=== PATIENT | male | born 1985 | race Caucasian/White ===

== ENCOUNTER → 2023-07-18 17:49 | Outpatient (BNV) | payer MEDICAID, SELFPAY | PROVIDERS: Emergency Provider Emergency Medicine; Visit Provider Physician Assistant | DX: S72.141A Displaced intertrochanteric fracture of right femur, initial encounter for closed fracture (principal) | CPT/HCPCS: 27245; 99024; 99223; 99238; 99499; G0180 ==

== ENCOUNTER 2023-07-18 17:56 | Inpatient (IN) | payer MEDICAID, SELFPAY ==
--- NOTE | ~2023-07-18 | XR_ITS ---
EXAMINATION: XR FEMUR, RIGHT XR HIP, RIGHT CLINICAL INFORMATION: Fall pain COMPARISON: None available. TECHNIQUE: Single view the pelvis 2 views of the right hip 3 views of the right femur FINDINGS: Comminuted right femoral intertrochanteric fracture with varus angulation. Joint space alignment otherwise maintained. Soft tissues are unremarkable. XR/XR femur RT 2V IMPRESSION: Comminuted right femoral intertrochanteric fracture with varus angulation.
--- NOTE | ~2023-07-18 | XR_ITS ---
EXAMINATION: XR CHEST CLINICAL INFORMATION: Fall. Hip fracture. COMPARISON: None available. TECHNIQUE: Frontal view of the chest was obtained. FINDINGS: The heart is normal in size. The lungs are clear. No pneumothorax or pleural effusion. No acute osseous abnormality. XR/XR chest 1V IMPRESSION: No acute cardiopulmonary disease.
--- NOTE | ~2023-07-18 | FL_ITS ---
EXAMINATION: XR FLUOROSCOPY WITH IMAGES CLINICAL INFORMATION: Right hip fracture. COMPARISON: Right hip radiographs 07/18/2023. TECHNIQUE: Fluoroscopy Supervised By: Dr. Jackson Chavira. Fluoroscopy Time: 0.6 min. Cumulative Dose: 17.8 mGy. DAP: 0.310 Gycm2. Images: 3. FINDINGS: Intraoperative imaging shows placement of an intramedullary chema and screw in the right hip. The lesser trochanter is avulsed and displaced medially. FL/FL guidance in OR IMPRESSION: Fluoroscopy and spot films provided during ORIF right hip fracture.
--- NOTE | ~2023-07-18 | XR_ITS ---
EXAMINATION: XR FEMUR, RIGHT XR HIP, RIGHT CLINICAL INFORMATION: Fall pain COMPARISON: None available. TECHNIQUE: Single view the pelvis 2 views of the right hip 3 views of the right femur FINDINGS: Comminuted right femoral intertrochanteric fracture with varus angulation. Joint space alignment otherwise maintained. Soft tissues are unremarkable. XR/XR hip RT w PEL1V IMPRESSION: Comminuted right femoral intertrochanteric fracture with varus angulation.
[2023-07-18 18:07] VITALS: BP 114/88; BP 124/82; PULSE 58; PULSE 71; RESP 20; TEMP 36.4; O2SAT 100; O2SAT 97; BMI 19.2
--- NOTE | 2023-07-18 18:13 | ED.LOWEXIN ---
HPI - Extremity Injury (Lower) General Chief Complaint: Fall Stated Complaint: FELL WHILE ROLLERBLADING, 10/28 R HIP PAIN Time Seen by Provider: 07/18/23 18:20 Source: patient and EMS Mode of arrival: EMS Limitations: no limitations History of Present Illness HPI Narrative: Patient is a 37-year-old male who presents emergency department via EMS for evaluation. He reports that he was rollerblading today, when he accidentally went over a patch of rash resulting in a fall. He reports that he flew into the air with his legs forward subsequently landing onto his right side with the point of most impact to the hip and femur on the right. He reports significant pain on the right side. His leg is currently being held in the point of most comfort which is externally rotated with the knee at slight flexion. He denies any numbness or tingling. No radiation of pain into the groin/scrotum. However he reports severe pain with any movement to the right leg. He received Tylenol from EMS without much improvement to pain. At this time he declines interest in pain medication. He denies any head strike or loss of consciousness with this fall. Denies any chest abdominal or upper extremity pain. Related Data Home Medications ?Medication ?Instructions ?Recorded ?Confirmed ibuprofen 200 mg tablet 400 mg PO DAILY PRN Pain 07/18/23 07/18/23 multivitamin 1 tab PO DAILY 07/18/23 07/18/23 Allergies Allergy/AdvReac Type Severity Reaction Status Date / Time No Known Allergies Allergy Verified 07/18/23 18:21 Review of Systems Review of Systems: Yes all other systems are reviewed and are negative PMFSH Past Medical History Attestation statement: The following information was validated with the patient. Source: old records reviewed Social History Social History Patient Tobacco Use Status: Never used Tobacco Smoked in Last 30 Days: No Use of substances other than those prescribed or required for medical reasons: No Advance Directives: No Advance Directives Information Provided: Yes Nutrition Risks: No Nutritional Risk Physical Exam Vital Signs: Vital Signs: Last Vital Signs Temp 98.5 F 07/19/23 00:00 Pulse 69 07/19/23 00:00 Resp 12 07/19/23 00:00 BP 91/61 07/19/23 00:00 Pulse Ox 97 07/19/23 00:00 O2 Del Method Room Air 07/18/23 20:00 BMI result Body Mass Index 19.2 Appearance: Alert.?Oriented to person, place and time. No acute distress.?Normal affect. Eyes: Pupils equal, round and reactive to light.? ENT: Pharynx normal.?? Neck: Normal inspection.? Neck supple.?? CVS: Heart sounds normal. Normal heart rate and rhythm.? Pulses normal.?? Respiratory: No respiratory distress.? Lung sounds clear to auscultation bilaterally?? Abdomen: Soft and non-tender. Normoactive bowel sounds. Skin: Skin warm and dry.? Normal skin color.? Extremities: No lower extremity edema.? No calf ttp. 2+ DP/PT pulse bilaterally. Tenderness upon palpation to right lateral hip and proximal femur. Right lower extremity with external rotation and slight flexion of the knee Neuro: Moves all extremities spontaneously. Sensation intact bilaterally. CN II-XII intact. No focal neuro deficits. Ambulates with normal steady gait. Course Reevaluation(s) Reevaluation #1: Critical potassium 2.9, will obtain EKG to evaluate for acute changes with hypokalemia, potassium chloride total of 40 mEq use IV ordered in 10 mEq increments in addition to 40 mEq of oral potassium. Time: 21:22 Reevaluation #2: Rate: 64 Rhythm:? Normal sinus rhythm with arrhythmia Normal P waves.? Normal JOSEPHINE.?? Normal QRS complex.?? ST T wave :??No ST elevation, no ST depression, no T-wave inversions qTC: 410 prior studies:? No prior available for review The study has been interpreted contemporaneously by me. Medications Administered Generic Name Dose Route Start Last Admin Trade Name Julianq PRN Reason Stop Dose Admin Acetaminophen 650 mg 07/18/23 19:26 07/19/23 01:51 Acetaminophen 325 Mg Tablet PO 650 mg Q6H PRN Administration Pain, Mild (Pain Scale 1-3) Celecoxib 200 mg 07/18/23 21:00 07/18/23 21:24 Celecoxib 200 Mg Capsule PO Not Given BID ANGIE Docusate Sodium 100 mg 07/18/23 21:00 07/18/23 21:23 Docusate Sodium 100 Mg Capsule PO 100 mg BID ANGIE Administration Lactated Ringer's 1,000 mls @ 100 mls/hr 07/18/23 19:30 07/18/23 21:44 Lr IVCONT 100 mls/hr .Q10H ANGIE Administration Oxycodone HCl 10 mg 07/18/23 21:00 07/18/23 21:24 Oxycodone Hcl Er 10 Mg Tab.Er.12h PO Not Given BID ANGIE Sodium Chloride 3 ml 07/19/23 00:00 07/19/23 01:19 0.9 % Sodium Chloride Flush 3 Ml Syringe IVFLUSH Not Given QSHIFT ANGIE Discontinued Medications Generic Name Dose Route Start Last Admin Trade Name Freq PRN Reason Stop Dose Admin Potassium Chloride 10 meq in 100 mls @ 100 mls/hr 07/18/23 22:00 07/19/23 02:05 Potassium Chloride/H20 IV 07/19/23 01:59 100 mls/hr Q1H ANGIE Administration Morphine Sulfate 2 mg 07/18/23 19:03 07/18/23 21:23 Morphine Sulfate 2 Mg/Ml Cartridge IVPUSH 07/18/23 19:04 2 mg ONCE ONE Administration Protocol Ondansetron HCl 4 mg 07/18/23 19:03 07/18/23 21:23 Ondansetron Hcl 4 Mg/2 Ml Vial IVPUSH 07/18/23 19:04 4 mg ONCE ONE Administration Potassium Chloride 40 meq 07/18/23 21:20 07/18/23 22:31 Potassium Chloride Packet 20 Meq Packet PO 07/18/23 21:21 40 meq ONCE ONE Administration Medical Decision Making Medical Decision Making [facility] Narrative: Patient is a 37-year-old male who presents emergency department for evaluation of traumatic right hip/femur pain as per HPI. The extremity is neurovascularly intact distally at the time of evaluation, he has significant pain and tenderness along the proximal femur/lateral hip. XR was obtained to evaluate for fracture/dislocation versus pain secondary to contusion, XR reveals comminuted right femoral intertrochanteric fracture with varus angulation. He reports remote past medical history of prescription opiate abuse for which he stopped on his own many years ago, he does have reservations about taking any narcotic medications, but is amenable to short course low dosage if absolutely necessary. Differential Diagnosis Differential Diagnoses: The differential diagnosis associated with the presentation includes (See narrative above) Admission/Observation Consideration of admission/observation: Escalation of care including admission/observation considered Consult Healthcare Provider Management of the patient was discussed with: Public Health Teacher (See course narrative) Lab Data [facility] Lab Attestation statement: I reviewed the patient's lab results. Leukocytosis likely reactive in setting of fracture, not anemic, no thrombocytopenia. Initial hypokalemia as per course narrative, improved with repletion repeat 4.1. No JINNY. LFTs within normal range. 07/18/23 20:39 07/19/23 01:06 Independent Interpretation I performed an independent interpretation of an: Plain X-Ray (Right intertrochanteric fracture) Radiology Impression Discussion of test interpretation with radiology: I have reviewed the radiologist's reading. Radiologist Impression: XR/XR chest 1V IMPRESSION: No acute cardiopulmonary disease. XR/XR hip RT w PEL1V IMPRESSION: Comminuted right femoral intertrochanteric fracture with varus angulation. Independent Historian Clinical information obtained from an independent historian. History obtained from or confirmed by: EMS Critical Care Time Critical Care Time Critical Care Time: Yes Total Critical Care Time: 35 Attestation: I personally attest to this critical care time spent taking care of the patient exclusive of all other billable procedures was approximately 35 minutes including initial evaluation of patient, ordering tests, x-ray interpretation, EKG interpretation, hyperkalemia, IV potassium, medical consultation, documentation, re-evaluation. Discharge Plan Discharge Clinical Impression: Closed intertrochanteric fracture of right hip Patient Disposition: Admitted As Inpatient
--- NOTE | 2023-07-18 19:29 | PM.EVENT ---
Event Note Date of Service: 07/18/23 Event Note: right hip fx right hip IMN pending 07/19/23 NPO after mignight full h.p to follow Time Spent With Patient Time: Total time managing care of this patient today ____ minutes.
--- NOTE | 2023-07-18 19:48 | PM.EVENT ---
Event Note Date of Service: 07/18/23 Event Note: 37-year-old male with very remote history of prescription opiate abuse not on any home medications admitted to Orthopedic surgery with consult placed hospitalist service for preop evaluation. The patient reports that while rollerblading today, he went over a patch of rocks resulting in a fall landing on the right side with most of the impact to the right hip and femur and is complaining of pain on that side. XR shows R femoral neck fracture. Pt has a score of 0 of revised cardiac risk index, class I risk. Given urgent/emergent nature of surgery, recommend continuing as planned. Plan per orthopedic surgery Thank you for allowing me to participate in this consult. Signing off at this time. Please do not hesitate to call for further questions or for any acute medical issues Time Spent With Patient Time: Total time managing care of this patient today ____ minutes.
[2023-07-18 20:00] VITALS: BP 98/70; PULSE 62; RESP 16; TEMP 36.6; O2SAT 100
[2023-07-18 20:44] LABS: MANUAL DIFF FLAG NO
[2023-07-18 20:45] LABS: Basophils Absolute Auto 0.1 X10*3/uL (0.0-0.2); Basophils Percent Auto 0.4 % (0-2); Hematocrit 40.1 % (42.0-52.0); Hemoglobin 14.5 g/dl (14.0-18.0); Imm Gran Pct Auto 0.5 % (0.0-0.4); Lymphocytes Absolute Auto 0.9 X10*3/uL (1.2-4.9); Lymphocytes Percent Auto 4.6 % (20-40); Mean Corpuscular HGB Conc 36.2 g/dl (31.0-36.0); Mean Corpuscular Hemoglobin 31.1 pg (27.0-33.0); Mean Corpuscular Volume 86.1 fL (80.0-98.0); Mean Platelet Volume 9.9 fL (9.4-12.4); Monocytes Absolute Auto 1.3 X10*3/uL (0.1-1.2); Monocytes Percent Auto 6.7 % (2-11); Neutrophils Absolute Auto 17.2 x10*3/uL (2.0-8.3); Neutrophils Percent Auto 87.8 % (45-73); Platelet Count 253 X10*3/uL (160-400); Red Blood Count 4.66 X10*6/uL (4.60-5.80); Red Cell Distribution Width 11.9 % (11.0-16.0); White Blood Count 19.6 X10*3/uL (4.8-10.8)
--- NOTE | 2023-07-18 20:59 | PHA.MEDREC ---
Pharmacy Consult ? Medication Reconciliation Pharmacy has completed the medication reconciliation. Confirmed medications with patient.
[2023-07-18 21:19] LABS: Alanine Aminotransferase 12 U/L (0-40); Albumin Level 4.4 g/dL (3.5-5.0); Alkaline Phosphatase 84 U/L (39-117); Anion Gap 18 (12-20); Aspartate Amino Transferase 17 U/L (5-37); Bilirubin Total 0.9 mg/dL (0.0-1.0); Blood Urea Nitrogen 14 mg/dL (9-16); Calcium 9.4 mg/dL (8.4-10.2); Carbon Dioxide 20 mmol/L (22-29); Chloride 107 mmol/L (96-108); Creatinine Clr Calc Pharmacy 103.8; Estimated Glomerular Filt Rate > 60; Glucose Random 111 mg/dL (60-115); Potassium 2.9 mmol/L (3.3-5.1); Sodium 142 mmol/L (135-145); Total Protein 7.3 g/dL (6.5-8.0)
--- NOTE | 2023-07-18 21:20 | ECG_ITS ---
Test Reason : HYPO K Blood Pressure : / mmHG Vent. Rate : 064 BPM Atrial Rate : 064 BPM P-R Int : 150 ms QRS Dur : 100 ms QT Int : 398 ms P-R-T Axes : 061 -15 064 degrees QTc Int : 410 ms Normal sinus rhythm with sinus arrhythmia Normal ECG No previous ECGs available Referred By: Clover Kumar Electronically Signed By:CELESTE ECHAVARRIA
[2023-07-18 21:23] VITALS: RESP 20
[2023-07-18] MEDS: Docusate Sodium 100 MG CAPSULE PO (21:23)
[2023-07-18] MEDS: ondansetron HCL 4 MG/2 ML VIAL IVPUSH (21:23)
[2023-07-18] MEDS: Morphine Sulfate 2 MG/ML CARTRIDGE IVPUSH (21:23)
[2023-07-18] MEDS: Lactated Ringers 1,000 ML 100 ML IVCONT (21:44)
[2023-07-18 21:51] LABS: Magnesium 1.8 mg/dL (1.6-2.6)
[2023-07-18] MEDS: Potassium Chloride Packet 20 MEQ PACKET 40 MEQ PO (22:31)
[2023-07-18] MEDS: Potassium Chloride/H20 10 MEQ/100 ML PIGGYBACK 100 MEQ IV (22:31)
[2023-07-19] VITALS (12 sets, daily range): BP systolic 91–154; BP diastolic 59–86; PULSE 57–109; RESP 12–18; TEMP 36.4–38.4; O2SAT 96–100; BMI 19.2
[2023-07-19] MEDS: Potassium Chloride/H20 10 MEQ/100 ML PIGGYBACK 100 MEQ IV ×3 (00:40→04:15)
[2023-07-19 01:34] LABS: Potassium 4.1 mmol/L (3.3-5.1)
[2023-07-19] MEDS: Acetaminophen 325 MG TABLET 650 MG PO ×2 (01:51→08:21)
--- NOTE | 2023-07-19 02:09 | PC.NURSE ---
this rn assumed care of pt, pt a&ox4, respirations even and unlabored. pt reporting 5/10 right hip pain, pt requesting tylenol at this time, pt medicated per apr, tolerated well with water.
[2023-07-19] MEDS: oxyCODONE HCl Immed Release 5 MG TABLET PO ×2 (04:16→16:41)
[2023-07-19] MEDS: Lactated Ringers 1,000 ML 100 ML IVCONT ×2 (05:41→18:11)
[2023-07-19 05:52] LABS: Basophils Percent Auto 0.2 % (0-2); Eosinophils Percent Auto 0.1 % (0-4); Hematocrit 36.1 % (42.0-52.0); Imm Gran Abs Auto 0.07 X10*3/uL (0.00-0.03); Imm Gran Pct Auto 0.4 % (0.0-0.4); Lymphocytes Absolute Auto 1.8 X10*3/uL (1.2-4.9); Lymphocytes Percent Auto 10.9 % (20-40); MANUAL DIFF FLAG SCAN; Mean Corpuscular Hemoglobin 31.1 pg (27.0-33.0); Mean Corpuscular Volume 86.4 fL (80.0-98.0); Mean Platelet Volume 10.3 fL (9.4-12.4); Monocytes Absolute Auto 1.7 X10*3/uL (0.1-1.2); Monocytes Percent Auto 10.1 % (2-11); Neutrophils Absolute Auto 12.9 x10*3/uL (2.0-8.3); Neutrophils Percent Auto 78.3 % (45-73); Platelet Count 227 X10*3/uL (160-400); Red Blood Count 4.18 X10*6/uL (4.60-5.80); Red Cell Distribution Width 11.9 % (11.0-16.0); SCAN SMEAR FLAG 1; White Blood Count 16.5 X10*3/uL (4.8-10.8)
[2023-07-19 06:12] LABS: SLIDE REVIEW VERIFIED
[2023-07-19 06:18] LABS: Anion Gap 13 (12-20); Blood Urea Nitrogen 12 mg/dL (9-16); Calcium 9.4 mg/dL (8.4-10.2); Carbon Dioxide 19 mmol/L (22-29); Chloride 111 mmol/L (96-108); Creatinine Clr Calc Pharmacy 109.1; Estimated Glomerular Filt Rate > 60; Glucose Fasting 99 mg/dL (60-99); Potassium 4.3 mmol/L (3.3-5.1); Sodium 139 mmol/L (135-145)
[2023-07-19] MEDS: oxyCODONE HCl ER 10 MG TAB.ER.12H PO ×2 (08:20→20:08)
[2023-07-19] MEDS: Docusate Sodium 100 MG CAPSULE PO ×2 (08:21→20:08)
--- NOTE | 2023-07-19 08:23 | P.HPOP_ITS ---
History of Present Illness History of Present Illness Date of Service: 07/19/23 Chief complaint: Right hip fx Narrative: Tru Ennis is a 37 year old male who presented to the ED after sustaining a fall from a rollerblading accident yesterday. He states he hit a rock and tried to catch himself, but ended up airborne and coming down hard landing on the right side. He was unable to get up and ambulate. A bystander called for EMS and he was transported to the ED. Xrays in the ED showed displaced Intertrochanteric fracture of the right femur. He is ambulatory at baseline. Works as a micro computer data processor. He was admitted to the orthopedic service fo surgical planning. Review of Systems 2 Review of Systems: Yes all other systems are reviewed and are negative PMFSH Social History Social History Patient Tobacco Use Status: Never used Tobacco Smoked in Last 30 Days: No Use of substances other than those prescribed or required for medical reasons: No Advance Directives: No Advance Directives Information Provided: Yes Nutrition Risks: No Nutritional Risk Meds Allergies Allergy/AdvReac Type Severity Reaction Status Date / Time No Known Allergies Allergy Verified 07/18/23 18:21 Active Medications: Current Medications Acetaminophen (Acetaminophen 325 Mg Tablet) 650 mg PO Q6H PRN PRN Reason: Pain, Mild (Pain Scale 1-3) Last Admin: 07/19/23 08:21 Dose: 650 mg Celecoxib (Celecoxib 200 Mg Capsule) 200 mg PO BID [facility] Last Admin: 07/18/23 21:24 Dose: Not Given Docusate Sodium (Docusate Sodium 100 Mg Capsule) 100 mg PO BID [facility] Last Admin: 07/19/23 08:21 Dose: 100 mg Hydromorphone HCl (Hydromorphone Hcl 0.5 Mg/0.5 Ml Syringe) 0.25 mg IVPUSH Q4H PRN; Protocol PRN Reason: Pain, Severe (Pain Scale 7-10) Lactated Ringer's (Lr) 1,000 mls @ 100 mls/hr IVCONT .Q10H [facility] Last Admin: 07/19/23 05:41 Dose: 100 mls/hr Ondansetron HCl (Ondansetron Hcl 4 Mg/2 Ml Vial) 4 mg IVPUSH Q8H PRN PRN Reason: Nausea and Vomiting Oxycodone HCl (Oxycodone Hcl Immed Release 5 Mg Tablet) 5 mg PO Q4H PRN PRN Reason: Pain, Moderate(Pain Scale 4-6) Last Admin: 07/19/23 04:16 Dose: 5 mg Oxycodone HCl (Oxycodone Hcl Er 10 Mg Tab.Er.12h) 10 mg PO BID [facility] Last Admin: 07/19/23 08:20 Dose: 10 mg Sodium Chloride (0.9 % Sodium Chloride Flush 3 Ml Syringe) 3 ml IVFLUSH QSHIFT [facility] Last Admin: 07/19/23 07:55 Dose: Not Given Home Medications ?Medication ?Instructions ?Recorded ?Confirmed ?Last Taken ?Type ibuprofen 200 mg tablet 400 mg PO DAILY PRN Pain 07/18/23 07/18/23 Unknown History multivitamin 1 tab PO DAILY 07/18/23 07/18/23 07/17/23 History Physical Exam 2 Vital Signs: Vital Signs: Last Vital Signs Temp 98.8 F 07/19/23 04:00 Pulse 57 07/19/23 04:00 Resp 12 07/19/23 04:00 BP 100/67 07/19/23 04:00 Pulse Ox 98 07/19/23 04:00 O2 Del Method Room Air 07/19/23 04:00 BMI result Body Mass Index 19.2 Const: General: cooperative, healthy appearing, comfortable, no acute distress, well developed and alert Orientation/consciousness: patient oriented x3 HEENT: Head: Yes normal to inspection, Yes normocephalic and Yes atraumatic Eyes: General: appearance normal, both eyes and all related structures Neck: Neck: Yes normal visual inspection and Yes no lymphadenopathy Resp: Effort & Inspection: normal respiratory effort and able to speak in complete sentences Cardio: Rate: regular rate Peripheral pulses: Peripheral pulses 2+ throughout GI: Inspection: Yes normal to inspection Palpation (GI): Soft to palpation Skin: General skin exam: no rashes or lesions noted Neuro: General: patient oriented x3 Extrem: Other: Right hip ER, in a splint from EMS. He is able to dorsi and plantar flex. NVI. Psych: Appearance: grossly normal Mental Status: mental status grossly normal Results Labs 07/19/23 05:27 07/19/23 05:27 Labs: Abnormal lab results 07/18/23 07/19/23 Range/Units 20:39 05:27 WBC 19.6 H 16.5 H (4.8-10.8) X10*3/uL RBC 4.18 L (4.60-5.80) X10*6/uL Hgb 13.0 L (14.0-18.0) g/dl Hct 40.1 L 36.1 L (42.0-52.0) % MCHC 36.2 H (31.0-36.0) g/dl Immature Gran % (Auto) 0.5 H (0.0-0.4) % Neut % (Auto) 87.8 H 78.3 H (45-73) % Lymph % (Auto) 4.6 L 10.9 L (20-40) % Lymph # (Auto) 0.9 L (1.2-4.9) X10*3/uL [facility] # (Auto) 1.3 H 1.7 H (0.1-1.2) X10*3/uL Abs Immat Gran (auto) 0.10 H 0.07 H (0.00-0.03) X10*3/uL Absolute Neuts (auto) 17.2 H 12.9 H (2.0-8.3) x10*3/uL Potassium 2.9 L* (3.3-5.1) mmol/L Chloride 111 H (96-108) mmol/L Carbon Dioxide 20 L 19 L (22-29) mmol/L H & H 07/18/23/ Range/Units 20:39 05:27 Hgb 14.5 13.0 L (14.0-18.0) g/dl Hct 40.1 L 36.1 L (42.0-52.0) % All other labs normal. Assessment and Plan (1) Closed intertrochanteric fracture of right hip: Status: Acute Plan I discussed the case with Dr Chavira and explained the extent of the injury to the patient and options available which include surgical intervention. I explained the procedure in detail along with the length of recovery and rehab course. I explained the risk, benefits and alternatives. Risk including, but not limited to infection, blood clots, bleeding, non union or malunion and nerve/tissue damage to surrounding areas. I answered all their questions and with their understanding they have consented to move forward with Operative Fixation of ( ) . The patient will be T&S, med clearance obtained and NPO . Quality Stroke Does the patient have a stroke diagnosis?: No VTE Prior VTE?: No VTE Risk Level:: Surgical - very high VTE Device Contraindication: N/A - Device Ordered VTE Drug Contraindication: N/A - Med Ordered Procedures Date of Service Date of Service: 07/19/23
--- NOTE | 2023-07-19 08:30 | PC.NURSE ---
Patient complaining of increase pain, patient medicated per APR with scheduled Oxycontin and PRN Tylenol. Patient alert and oriented, calm and cooperative with staff. Patient to go to surgery this afternoon.
[2023-07-19] MEDS: Celecoxib 200 MG CAPSULE PO ×2 (10:19→20:07)
--- NOTE | 2023-07-19 13:15 | MHC.CM.PN ---
PT REPORTS HE LIVES WITH HIS S/O AND IS INDEPENDENT WITH ALL CARE HE HAS NO DME AND NO SERVICES PT WILL COMPLETE A HCP TODAY NAMING HIS GIRLFRIEND HIS AGENT HE DOES NOT HAVE A PCP DCP TBD: STR VS HOME WITH OUTPATIENT PT TRANSPORT TBD BY DISPOSITION
--- NOTE | 2023-07-19 13:34 | MHC.SHP ---
Pre-Procedural Eval Section A - 24 Hr Update-Section A only Date of Service: 07/19/23 Changes since office visit: No Cold of Flu in the past 2 weeks, No New Medical Problems, No Changes in Medication and No Patient answered all questions The patient has been examined within 24 hours of the surgical procedure. The History & Physical has been completed within 30 days and I have reviewed it.: Yes Section B - Complete if H&P > 30 days Chief Complaint: Right hip fx Allergies: Allergies Allergy/AdvReac Type Severity Reaction Status Date / Time No Known Allergies Allergy Verified 07/18/23 18:21 Plan I have reviewed the history and physical and performed a pertinent physical examination on my patient. No changes have occurred unless specified. Time Spent With Patient Time: Total time managing care of this patient today ____ minutes.
--- NOTE | 2023-07-19 13:49 | PC.NURSE ---
Patient arrived to [facility] with one PRN angio, #20 left AC. Flushed well, site asymptomatic.
--- NOTE | 2023-07-19 14:49 | P.CONAN_ITS ---
[facility] Active Problems Active Problems: All Active Problems Closed intertrochanteric fracture of right hip (Acute) Past Medical History Medical History No pertinent past medical history Smoker Surgical History Surgical History (Updated 07/19/23 @ 13:39 by Angelica Grubbs) [place] teeth extracted Social History Social History Household Members: Significant Other Housing: Apartment Do you presently have visiting nurse or other home services: No Patient Tobacco Use Status: Current everyday Tobacco user Tobacco use type: Cigarette Cigarettes Per Day: 4 Years Smoked: 22 Smoked in Last 30 Days: Yes Patient Interested in Nicotine Replacement: No Use of substances other than those prescribed or required for medical reasons: Yes Substance Use Type: Marijuana 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 If so, by whom?: No Do you feel safe in your current relationship?: Yes Is there a partner from a previous relationship who is making you feel unsafe now?: No Are you made to feel afraid or neglected: No Are you DNR?: No Advance Directives: No Advance Directives Information Provided: Yes Do you have a plan to hurt others: No Plan Recently lost weight without trying: No Eating poorly because of decreased appetite: No Nutrition Risks: No Nutritional Risk service: No Meds Allergies Allergy/AdvReac Type Severity Reaction Status Date / Time No Known Allergies Allergy Verified 07/19/23 13:41 Active Medications: Current Medications Acetaminophen (Acetaminophen 325 Mg Tablet) 650 mg PO Q6H PRN PRN Reason: Pain, Mild (Pain Scale 1-3) Last Admin: 07/19/23 08:21 Dose: 650 mg Celecoxib (Celecoxib 200 Mg Capsule) 200 mg PO BID [facility] Lqast Admin: 07/19/23 10:19 Dose: 200 mg Docusate Sodium (Docusate Sodium 100 Mg Capsule) 100 mg PO BID [facility] Last Admin: 07/19/23 08:21 Dose: 100 mg Hydromorphone HCl (Hydromorphone Hcl 0.5 Mg/0.5 Ml Syringe) 0.25 mg IVPUSH Q4H PRN; Protocol PRN Reason: Pain, Severe (Pain Scale 7-10) Lactated Ringer's (Lr) 1,000 mls @ 100 mls/hr IVCONT .Q10H [facility] Last Infusion: 07/19/23 13:28 Dose: 0 mls/hr Ondansetron HCl (Ondansetron Hcl 4 Mg/2 Ml Vial) 4 mg IVPUSH Q8H PRN PRN Reason: Nausea and Vomiting Oxycodone HCl (Oxycodone Hcl Immed Release 5 Mg Tablet) 5 mg PO Q4H PRN PRN Reason: Pain, Moderate(Pain Scale 4-6) Last Admin: 07/19/23 04:16 Dose: 5 mg Oxycodone HCl (Oxycodone Hcl Er 10 Mg Tab.Er.12h) 10 mg PO BID [facility] Last Admin: 07/19/23 08:20 Dose: 10 mg Sodium Chloride (0.9 % Sodium Chloride Flush 3 Ml Syringe) 3 ml IVFLUSH QSHIFT [facility] Last Admin: 07/19/23 07:55 Dose: Not Given Home Medications ?Medication ?Instructions ?Recorded ?Confirmed ?Last Taken ?Type ibuprofen 200 mg tablet 400 mg PO DAILY PRN Pain 07/18/23 07/19/23 07/14/23 History multivitamin 1 tab PO DAILY 07/18/23 07/18/23 07/17/23 History Exam Height,Weight and Vital Signs: Height 5 ft 9 in Weight 58.9 kg Last Vital Signs Temp 101.2 F H 07/19/23 13:41 Pulse 70 07/19/23 13:41 Resp 16 07/19/23 13:41 BP 139/77 07/19/23 13:41 Pulse Ox 99 07/19/23 13:41 O2 Del Method Room Air 07/19/23 13:41 Pertinent Lab Results Pertinent Lab Results: Laboratory Tests 07/18/23 07/18/23 07/19/23 20:39 22:43 01:06 WBC 19.6 H RBC 4.66 Hgb 14.5 Hct 40.1 L MCV 86.1 MCH 31.1 MCHC 36.2 H RDW 11.9 Plt Count 253 MPV 9.9 Immature Gran % (Auto) 0.5 H Neut % (Auto) 87.8 H Lymph % (Auto) 4.6 L [place] % (Auto) 6.7 Eos % (Auto) 0.0 Baso % (Auto) 0.4 Lymph # (Auto) 0.9 L [place] # (Auto) 1.3 H Eos # (Auto) 0.0 Baso # (Auto) 0.1 Abs Immat Gran (auto) 0.10 H Absolute Neuts (auto) 17.2 H Absolute Nucleated RBC 0.000 Nucleated RBC % (auto) 0.0 Smear Tech's Comments Sodium 142 Potassium 2.9 L* 4.1 D Chloride 107 Carbon Dioxide 20 L Anion Gap 18 BUN 14 Creatinine 0.82 Estim Creat Clear Calc 103.8 Estimated GFR > 60 Random Glucose 111 Fasting Glucose Calcium 9.4 Magnesium 1.8 Total Bilirubin 0.9 AST 17 ALT 12 Alkaline Phosphatase 84 Total Protein 7.3 Albumin 4.4 Blood Type A Positive Antibody Screen NEGATIVE 07/19/23 05:27 WBC 16.5 H RBC 4.18 L Hgb 13.0 L Hct 36.1 L MCV 86.4 MCH 31.1 MCHC 36.0 RDW 11.9 Plt Count 227 MPV 10.3 Immature Gran % (Auto) 0.4 Neut % (Auto) 78.3 H Lymph % (Auto) 10.9 L [place] % (Auto) 10.1 Eos % (Auto) 0.1 Baso % (Auto) 0.2 Lymph # (Auto) 1.8 [place] # (Auto) 1.7 H Eos # (Auto) 0.0 Baso # (Auto) 0.0 Abs Immat Gran (auto) 0.07 H Absolute Neuts (auto) 12.9 H Absolute Nucleated RBC 0.000 Nucleated RBC % (auto) 0.0 Smear Tech's Comments VERIFIED Sodium 139 Potassium 4.3 Chloride 111 H Carbon Dioxide 19 L Anion Gap 13 BUN 12 Creatinine 0.78 Estim Creat Clear Calc 109.1 Estimated GFR > 60 Random Glucose Fasting Glucose 99 Calcium 9.4 Magnesium Total Bilirubin AST ALT Alkaline Phosphatase Total Protein Albumin Blood Type Antibody Screen
--- NOTE | 2023-07-19 14:50 | PC.NURSE ---
Patient in preop. Voiced history of drug use 4-5 years ago. States he no longer uses. Dr. Ro at bedside, made aware. No new orders. May proceed with surgery at this time with no UTOX.
--- NOTE | 2023-07-19 16:14 | P.BOP_ITS ---
Brief Operative Note Date of Service: 07/19/23 Pre-op diagnosis: right IT fx Post-op diagnosis: same Procedure: IMN right hip Implants: Stryke [id number] 125 deg with 95 mm his screw and 35 mm distal interlock Surgeon: Jackson Chavira MD Anesthesia: GETA and local Was an Pipe Organ Tuner And Repairer used for this Procedure?: Yes Pipe Organ Tuner And Repairer: Marv Hopkins Estimated blood loss (mL): 50 IV fluids (mL): 800 Pathology: none sent Condition: stable Disposition: PACU
[2023-07-19] MEDS: fentaNYL citrate/PF 100 MCG/2 ML VIAL 25 MCG IVPUSH (16:41)
[2023-07-19] MEDS: 0.9 % Sodium Chloride Flush 3 ML SYRINGE IVFLUSH (18:11)
--- NOTE | 2023-07-19 19:35 | PC.NURSE ---
This RN assumed care at 1900. Pt denies pain at this time, resting quietly with family at bedside. DSGx3 on right hip dry and intact. Denies numbness or tingling, sensation to right leg intact. Pedal pulse 3+ bilaterally. BSx4: no pain with palpation. LBM prior to accident. Pt is using urinal. No apparent distress at htis time, call ross within reach.
[2023-07-19] MEDS: Nicotine 7 MG PATCH.TD24 TRANSDERMA (20:31)
--- NOTE | 2023-07-19 22:55 | PC.NURSE ---
Pt resting quietly in bed with no apparent distress, pt requesting a snack, sandwich and some cheese sticks, given. Call ross within reach
[2023-07-20] VITALS: BP 118/59; PULSE 88; RESP 16; TEMP 36.4; O2SAT 98
[2023-07-20] MEDS: Lactated Ringers 1,000 ML 100 ML IVCONT (02:55)
--- NOTE | 2023-07-20 03:59 | PC.NURSE ---
Pt resting in bed watching movies on ipad. Respirations even and unlabored, no apparent distress. Call ross within reach.
[2023-07-20 04:00] VITALS: BP 125/65; PULSE 78; RESP 16; TEMP 36.4; O2SAT 97
[2023-07-20 07:03] LABS: Basophils Percent Auto 0.2 % (0-2); Eosinophils Percent Auto 0.1 % (0-4); Hematocrit 32.3 % (42.0-52.0); Hemoglobin 11.2 g/dl (14.0-18.0); Imm Gran Abs Auto 0.09 X10*3/uL (0.00-0.03); Imm Gran Pct Auto 0.6 % (0.0-0.4); Lymphocytes Absolute Auto 1.5 X10*3/uL (1.2-4.9); Lymphocytes Percent Auto 9.5 % (20-40); MANUAL DIFF FLAG SCAN; Mean Corpuscular HGB Conc 34.7 g/dl (31.0-36.0); Mean Corpuscular Hemoglobin 30.3 pg (27.0-33.0); Mean Corpuscular Volume 87.3 fL (80.0-98.0); Mean Platelet Volume 10.3 fL (9.4-12.4); Monocytes Absolute Auto 2.1 X10*3/uL (0.1-1.2); Monocytes Percent Auto 13.6 % (2-11); Neutrophils Absolute Auto 11.9 x10*3/uL (2.0-8.3); Platelet Count 173 X10*3/uL (160-400); Red Cell Distribution Width 11.9 % (11.0-16.0); SCAN SMEAR FLAG 1; White Blood Count 15.6 X10*3/uL (4.8-10.8)
[2023-07-20 07:38] LABS: Anion Gap 12 (12-20); Blood Urea Nitrogen 9 mg/dL (9-16); Calcium 9.2 mg/dL (8.4-10.2); Carbon Dioxide 24 mmol/L (22-29); Chloride 107 mmol/L (96-108); Creatinine Clr Calc Pharmacy 123.3; Estimated Glomerular Filt Rate > 60; Glucose Fasting 114 mg/dL (60-99); Sodium 139 mmol/L (135-145)
[2023-07-20 07:40] VITALS: BP 137/73; PULSE 62; RESP 12; TEMP 36.7; O2SAT 98
[2023-07-20] MEDS: Nicotine 7 MG PATCH.TD24 TRANSDERMA (07:50)
[2023-07-20] MEDS: Acetaminophen 325 MG TABLET 650 MG PO (07:51)
[2023-07-20] MEDS: oxyCODONE HCl ER 10 MG TAB.ER.12H PO ×2 (07:51→20:08)
[2023-07-20] MEDS: Multivitamin TABLET 1 TAB PO (07:52)
[2023-07-20] MEDS: Docusate Sodium 100 MG CAPSULE PO ×2 (07:52→20:09)
[2023-07-20] MEDS: Celecoxib 200 MG CAPSULE PO ×2 (07:52→20:09)
[2023-07-20 08:14] LABS: SLIDE REVIEW VERIFIED
[2023-07-20 08:27] VITALS: BP 119/77; PULSE 80; O2SAT 98
--- NOTE | 2023-07-20 13:16 | P.PNOP_ITS ---
Subjective Subjective Date of Service: 07/20/23 Interval history: POD 1 s/p Rt hip IMN no overnight events resting in recliner-worked with PT no concerns Physical Exam Vital Signs: Vital Signs: Last Vital Signs Temp 98.0 F 07/20/23 07:40 Pulse 80 07/20/23 08:27 Resp 12 07/20/23 07:40 BP 119/77 07/20/23 08:27 Pulse Ox 98 07/20/23 08:27 O2 Del Method Room Air 07/20/23 07:40 O2 Flow Rate 3 07/19/23 16:36 BMI result Body Mass Index 19.2 Extrem: Other: bandage clean dry and intact. [place] intact. No erythema or effusion. Calf supple nontender. Neurovascularly intact. Procedures Date of Service Date of Service: 07/20/23 Progress Note: A&P Assessment and plan (1) Closed intertrochanteric fracture of right hip: Status: Acute Assessment and Plan: * Continue pain mgmnt * Beginlovenox for dvt ppx * begin PT /OT for RT IMN wbat * Dispo planning-Pending PT eval, pain mgmnt Time Spent With Patient Time: Total time managing care of this patient today ____ minutes. Quality Stroke Does the patient have a stroke diagnosis?: No VTE Prior VTE?: No VTE Risk Level:: Surgical - very high VTE Device Contraindication: N/A - Device Ordered VTE Drug Contraindication: N/A - Med Ordered
[2023-07-20 15:35] VITALS: BP 125/72; PULSE 72; RESP 18; TEMP 36.8; O2SAT 99
[2023-07-20] MEDS: 0.9 % Sodium Chloride Flush 3 ML SYRINGE IVFLUSH ×2 (16:40→20:12)
[2023-07-20] MEDS: Enoxaparin Sodium 40 MG/0.4 ML SYRINGE SUBCUT (16:40)
[2023-07-20] MEDS: oxyCODONE HCl Immed Release 5 MG TABLET PO (18:27)
[2023-07-20 18:49] VITALS: BP 118/71; PULSE 72; RESP 18; TEMP 36.4; O2SAT 99
--- NOTE | 2023-07-20 18:58 | HO.POSTANES ---
Post Anesthesia Evaluation Post Anesthesia Evaluation Date of Service: 07/20/23 Vital Signs: Vital Signs Temp Pulse Resp BP Pulse Ox O2 Del Method 07/20/23 18:49 97.5 F 72 18 118/71 99 Room Air 07/20/23 15:35 98.3 F 72 18 125/72 99 Room Air 07/20/23 08:27 80 119/77 98 07/20/23 07:40 98.0 F 62 12 137/73 98 Room Air Anesthesia: General LMA Mental Status: Awake Pain Control: Satisfactory Nausea/Vomiting: None Hydration: Adequate Anesthesia-Related Issues: No Anes. Related Issues
--- NOTE | 2023-07-20 19:50 | PC.NURSE ---
This RN assumed care 1900, Pt AOx4, laying in bed with no apparent distress. Respirations even and unlabored, lung sounds clear through out. BSx4, 3x Dsg dry and intact, denies numbness or tingling to right leg, CSM intact. #20 LAC, patent and intact and flushes well. Pt states he is tolerating the pain well, meds given per MAR Call ross within reach.
[2023-07-21 03:20] VITALS: BP 120/71; PULSE 81; RESP 18; TEMP 36.4; O2SAT 98
[2023-07-21 06:43] LABS: MANUAL DIFF FLAG NO
[2023-07-21 07:13] LABS: Anion Gap 12 (12-20); Blood Urea Nitrogen 9 mg/dL (9-16); Calcium 9.4 mg/dL (8.4-10.2); Carbon Dioxide 24 mmol/L (22-29); Chloride 108 mmol/L (96-108); Creatinine Clr Calc Pharmacy 121.5; Estimated Glomerular Filt Rate > 60; Glucose Fasting 80 mg/dL (60-99); Potassium 3.8 mmol/L (3.3-5.1); Sodium 140 mmol/L (135-145)
[2023-07-21 07:16] LABS: Basophils Percent Auto 0.3 % (0-2); Eosinophils Absolute Auto 0.1 X10*3/uL (0.0-0.4); Eosinophils Percent Auto 0.6 % (0-4); Hematocrit 30.7 % (42.0-52.0); Hemoglobin 10.8 g/dl (14.0-18.0); Imm Gran Abs Auto 0.06 X10*3/uL (0.00-0.03); Imm Gran Pct Auto 0.5 % (0.0-0.4); Lymphocytes Absolute Auto 3.1 X10*3/uL (1.2-4.9); Lymphocytes Percent Auto 26.4 % (20-40); Mean Corpuscular HGB Conc 35.2 g/dl (31.0-36.0); Mean Corpuscular Hemoglobin 30.9 pg (27.0-33.0); Mean Corpuscular Volume 87.7 fL (80.0-98.0); Mean Platelet Volume 11.2 fL (9.4-12.4); Monocytes Absolute Auto 1.4 X10*3/uL (0.1-1.2); Monocytes Percent Auto 12.3 % (2-11); Neutrophils Absolute Auto 6.9 x10*3/uL (2.0-8.3); Neutrophils Percent Auto 59.9 % (45-73); Platelet Count 167 X10*3/uL (160-400); Red Cell Distribution Width 12.3 % (11.0-16.0); White Blood Count 11.6 X10*3/uL (4.8-10.8)
[2023-07-21 07:42] VITALS: BP 120/54; PULSE 73; RESP 14; TEMP 36.4; O2SAT 98
[2023-07-21] MEDS: Celecoxib 200 MG CAPSULE PO (08:33)
[2023-07-21] MEDS: oxyCODONE HCl ER 10 MG TAB.ER.12H PO (08:33)
[2023-07-21] MEDS: Multivitamin TABLET 1 TAB PO (08:33)
[2023-07-21] MEDS: Nicotine 7 MG PATCH.TD24 TRANSDERMA (08:33)
[2023-07-21] MEDS: Docusate Sodium 100 MG CAPSULE PO (08:33)
[2023-07-21] MEDS: 0.9 % Sodium Chloride Flush 3 ML SYRINGE IVFLUSH (08:33)
--- NOTE | 2023-07-21 12:11 | P.DS_ITS ---
DS: Providers Provider Date of Service: 07/21/23 Date of admission: 07/18/23 20:17 Primary care physician: None Physician Consults: 07/18/23 19:24 Consult to Hospitalist Routine Comment: Consulting Provider: Hospitalist Reason For Exam: pre op clearance DS: Diagnosis Discharge Diagnosis (1) Closed intertrochanteric fracture of right hip: Status: Acute DS: Summary Hospital Course Hospital Course: The patient underwent a successful Right hip IMN fixation on 07/19/[address] Chavira , was transferred to PACU and then to the floor to recover. During their stay, their vitals were stable, afebrile at 97.6 . Labs were unremarkable, H/H 10.8/30.7 . POD 1 he was started on Lovenox once a day for DVT ppx, they also received Physical Therapy services twice a day. Physical therapy should include gait training, core and lumbar strength, glute strength. Posterior precautions intact. WBAT. Prior to discharge, dressing clean dry and intact, dressing should remain intact and dry at all times. Any concerns with the dressing, please contact orthopedic office. No showering. The plan is to be discharged home with VNA Time Attestation Discharge Coordination Time (in mins): 30 Quality: Safe Use of Opioids Does Pt have an Active Cancer Diagnosis on the Problem List?: No Quality: Stroke Does the patient have a stroke diagnosis?: No Physical Exam Vital Signs: Vital Signs: Last Vital Signs Temp 97.6 F 07/21/23 07:42 Pulse 73 07/21/23 07:42 Resp 14 07/21/23 07:42 BP 120/54 L 07/21/23 07:42 Pulse Ox 98 07/21/23 07:42 O2 Del Method Room Air 07/21/23 07:42 O2 Flow Rate 3 07/19/23 16:36 BMI result Body Mass Index 19.2 DS: Data Data Completed and Pending Labs on day of discharge: Laboratory Results - last 24 hr 07/21/23 05:26 WBC 11.6 H RBC 3.50 L Hgb 10.8 L Hct 30.7 L MCV 87.7 MCH 30.9 MCHC 35.2 RDW 12.3 Plt Count 167 MPV 11.2 Immature Gran % (Auto) 0.5 H Neut % (Auto) 59.9 Lymph % (Auto) 26.4 [place] % (Auto) 12.3 H Eos % (Auto) 0.6 Baso % (Auto) 0.3 Lymph # (Auto) 3.1 [place] # (Auto) 1.4 H Eos # (Auto) 0.1 Baso # (Auto) 0.0 Abs Immat Gran (auto) 0.06 H Absolute Neuts (auto) 6.9 Absolute Nucleated RBC 0.000 Nucleated RBC % (auto) 0.0 Sodium 140 Potassium 3.8 Chloride 108 Carbon Dioxide 24 Anion Gap 12 BUN 9 Creatinine 0.70 Estim Creat Clear Calc 121.5 Estimated GFR > 60 Fasting Glucose 80 Calcium 9.4 Discharge Plan Discharge Anticipated Discharge Date/Time: 07/21/23 11:28 Patient Disposition: Home Health Service Discharge Diagnosis: Rt hip IMN Referrals: Manny Maldonado PA-C [Physician Support Analyst] - 2 Weeks Discharge Medications: New celecoxib 200 mg Capsule 200 mg PO BID 30 Days Qty: 60 0RF acetaminophen 325 mg Tablet 650 mg PO Q6H PRN (Reason: Pain, Mild (Pain Scale 1-3)) 30 Days Qty: 240 0RF docusate sodium 100 mg Capsule 100 mg PO BID 14 Days Qty: 28 0RF oxycodone 5 mg Tablet 5 mg PO Q4H PRN (Reason: Pain, Moderate(Pain Scale 4-6)) 7 Days Qty: 42 0RF Rx Instructions: Partial Fill upon patient request. enoxaparin 40 mg/0.4 mL Syringe 40 mg subcut Q24H 42 Days Qty: 16.8 0RF Continued multivitamin Tablet 1 tab PO DAILY Discontinued ibuprofen 200 mg Tablet 400 mg PO DAILY PRN (Reason: Pain) Discharge Orders: Discharge Order (Routine); Ordered 07/21/23 Ordered By: Manny Maldonado Diet: Regular diet Activity on Discharge: Use cane or walker Stand Alone Forms: Patient Portal Discharge page Print Language: B[place] Care Plan Goals: Restore function of joint Health Concerns: none Plan of Treatment: Physical Therapy Pain management DVT prophylaxis Assessment: Gait training, strengthening, ADLs Continue lovenox for dvt ppx x6 weeks Keep dressing clean,dry and intact-no showering or tub baths Follow up with Orthopedics in 2 weeks
--- NOTE | 2023-07-21 12:12 | W.MHC.F2F ---
Service Date Service Date: 07/21/23 Encounter Date of encounter: 07/21/23 Reasons for Services Signs and symptoms assessed: Weakness, poor balance, poor gait mechanics Reason for physical therapy: home safety and mobility, therapeutic exercises, restore joint function, gait/transfer training, ADL training and energy conservation Reason for occupational therapy: home safety and mobility, therapeutic exercises, restore joint function, gait/transfer training, ADL training and energy conservation Homebound: Leaving the home is medically contraindicated at this time without the asist of a device and/or another person due th the listed conditions above and below. Reason homebound: unsteady gait / fall risk, pain with ambulation, poor balance / fall risk and unable to drive Homebound supporting statement: Pt. is considered home bound due to recent surgery. Unable to drive, poor balance, poor gait mechanics. Certification: Based on the above findings, I certify that this patient is confined to the home and needs intermittent senior living care, physical therapy and/or speech therapy, or continues to need occupational therapy. The patient is under my care, and I have initiated the establishment of the plan of care. The patient will be followed by a physician who will periodically review the plan of care. Time Spent With Patient Time: Total time managing care of this patient today ____ minutes.
--- NOTE | 2023-07-21 12:43 | MHC.CM.PN ---
Addendum entered by Renata Montalvo 07/22/23 08:15: REFERRAL ALSO SENT TO [facility] TO DETERMINE IF [place] [place] IS ACTIVE OR CAN BE RESTORED Original Note: PT WILL DC HOME TODAY HE IS UNABLE TO HAVE VNA DUE TO LACK OF PCP RN BEDSIDE FOR LOVENOX TEACH, PT STATES HE WILL BE ABLE TO MANAGE THIS INDEPENDENTLY PT IS AWARE A REFERRAL WILL BE MADE BY ORTHO FOR OUTPATIENT PHYSICAL THERAPY PT DID COMPLETE A HCP WHILE HERE, WHICH IS NOW ON FILE PTS S/O BEDSIDE TO TRANSPORT
--- NOTE | 2023-07-22 12:50 | W.PM.OPN ---
Operative Note Operative Note Date of Service: 07/19/23 Narrative: Date of Service: 07/19/23 Pre-op diagnosis: right IT fx Post-op diagnosis: same Procedure: IMN right hip Implants: Stryke [id number] 125 deg with 95 mm his screw and 35 mm distal interlock Surgeon: Jackson Chavira MD Anesthesia: GETA and local Was an Digital Field Service Technician used for this Procedure?: Yes Digital Field Service Technician: Marv Hopkins Estimated blood loss (mL): 50 IV fluids (mL): 800 Pathology: none sent Condition: stable Disposition: PACU Procedure in detail: Patient was brought to the operating room and prepped and draped in standard sterile fashion. Time-out was called to identify proper site procedure proper surgeon and IV antibiotics per weight were administered. He was positioned on the fracture table and a traction and slight internal rotation were performed and biplanar fluoroscopy confirmed initial fracture reduction. I then made a stab incision proximal to the greater trochanter in using a guidewire made a entry point just lateral to the tip of the greater trochanter and placed a guidewire into the femoral metadiaphysis. I placed my ball-tip guidewire down distally in the femur and selected a [id number] 125 deg IM nail. I then inserted the nail. I then turned my attention to the hip screw where I used a guidewire and a tip apex distance of less than 1.5 measured my hip screw. I then pre drilled and placed a hip screw using biplanar fluoroscopy. Once I was satisfied with the position of the hip screw I turned my attention to the distal aspect of the nail. Using the static guide hole I placed 1 static distal interlocking screw in standard AO technique. I then removed all I then placed my set screw proximally and removed all extraneous instrumentation. Final biplanar radiographs were taken. I was satisfied with the position of the hardware and the fracture reduction. I think copiously irrigated closed with absorbable sutures arnaldo and injected 30 mL of into the area of the incisions. Traction was let down patient was placed in sterile dressing awakened from anesthesia brought to recovery room stable condition there were no known complications.
== END 2023-07-21 14:29 | disposition home health service (06) | DRG 308 ==
LOC: HO.ED 19:53 → HO.EDOVER 20:19 → HO.S3 07-19 11:37
PROVIDERS: Internal Medicine; Nurse Practitioner Family; Orthopaedic Surgery; Admitting Provider Physician Assistant; Emergency Provider Emergency Medicine; Visit Provider Physician Assistant
DX: S72.141A Displaced intertrochanteric fracture of right femur, initial encounter for closed fracture (principal); E87.6 Hypokalemia; F17.210 Nicotine dependence, cigarettes, uncomplicated; W19.XXXA Unspecified fall, initial encounter; Z79.899 Other long term (current) drug therapy
CPT/HCPCS: 36415; 71045; 73502; 73552; 80048; 80053; 83735; 84132; 85025; 86850; 86900; 86901; 93005; 97162; 99285; C1713; J0690; J1100; J1650; J2250; J2270; J2405; J2704; J2795; J3010; J3480; J7120

== ENCOUNTER 2023-07-18 20:17 | Outpatient (BNV) | payer MEDICAID, SELFPAY | END 2023-07-18 21:20 | PROVIDERS: Admitting Provider Physician Assistant; Emergency Provider Emergency Medicine; Visit Provider Internal Medicine | DX: E87.6 Hypokalemia (principal) | CPT/HCPCS: 93010 ==

== ENCOUNTER 2023-08-01 12:00 | Outpatient (REF) | payer MEDICAID, SELFPAY ==
--- NOTE | ~2023-08-01 | XR_ITS ---
EXAMINATION: XR FEMUR, RIGHT CLINICAL INFORMATION: Follow-up intertrochanteric fracture. COMPARISON: Prior radiographs, most recently 07/19/2023. TECHNIQUE: AP and lateral views of the right femur were obtained. FINDINGS: An intact proximal right femoral intramedullary chema and compression screw are seen. There is stable alignment of fracture fragments, with a displaced fragment again noted of the lesser trochanter. No hardware failure or loosening is seen. There is no unusual degenerative change of the right hip or knee joints. No soft tissue gas or foreign body is seen. There are lateral thigh surgical arnaldo. XR/XR femur RT 2V IMPRESSION: There is stable, well-maintained alignment status-post ORIF of a proximal right femoral intertrochanteric fracture. No hardware loosening is seen.
== END 2023-08-01 12:01 | disposition home or self-care (01) ==
LOC: HO.HOSX 12:00
PROVIDERS: Visit Provider Physician Assistant
DX: S72.141D Displaced intertrochanteric fracture of right femur, subsequent encounter for closed fracture with routine healing (principal)
CPT/HCPCS: 73552; 99212

== ENCOUNTER 2023-08-01 12:47 | Outpatient (AMB) | payer SELFPAY ==
--- NOTE | 2023-08-01 13:20 | MHC.OFFVIS ---
Vital Signs 08/01/23 13:23 Height 5 ft 9 in Weight 130 lb BMI 19.2 Intake Visit Reasons: PO-RT hip IMN NE 07/19/23 Intake Note: Tru a 37 year old male who presents today using a walker with his girlfriend for a post operative right hip IMN 07/19/23 NE. Patient reports he is doing well and continues to stay as active as possible to avoid stiffness and discomfort. Accompanied by: Significant Other Allergies No Known Allergies Allergy (Verified 08/01/23 13:24) HPI HPI PO-RT hip IMN NE 07/19/23: Details: 37-year-old male who returns to the office today using a walker with his girlfriend for post-op right hip IMN, 07/19/[address] Chavira. He reports he is doing well overall and continues to be active to avoid stiffness and discomfort in his hip. He has no other concerns today. PFSH Medical History No pertinent past medical history Smoker Surgical History [place] teeth extracted Social History Household Members: Significant Other Housing: Apartment Do you presently have visiting nurse or other home services: No Patient Tobacco Use Status: Current everyday Tobacco user Tobacco use type: Cigarette Cigarettes Per Day: 4 Years Smoked: 22 Substance Use Type: Marijuana service: No Current occupational status: employed Current occupation: freelancer/computer programer Review of Systems Const All systems reviewed & are unremarkable except as noted in HPI and below Physical Exam Vital Signs: BMI result Body Mass Index 19.2 Extrem Other: Right hip: Incision clean, dry and intact. No redness or drainage. Calf supple, nontender. NVI. Results Reviewed Results Reviewed: Xrays were obtained in the office today and personally reviewed by me of the right hip show intact IMN with stable fracture pattern Assessment & Plan Assessment & Plan (1) Closed intertrochanteric fracture of right hip: Code(s): S72.141A - Displaced intertrochanteric fracture of right femur, initial encounter for closed fracture Category: Medical Qualifiers: Encounter type: subsequent encounter Fracture alignment: displaced Fracture healing: with routine healing Qualified Code(s): S72.141D - Displaced intertrochanteric fracture of right femur, subsequent encounter for closed fracture with routine healing Plan [place] removed, steri strips applied. He will begin to transition to Outpatient PT to continue working on Gait training, ROM and quad strength. No driving for another 4 weeks. He will f/u in 4 weeks,with xrays, sooner if needed. Orders: Orders PT Evaluation and Treatment 08/01/23 S72.141A - Displaced intertrochanteric fracture of right femur, initial encounter for closed fracture XR femur RT 2V 08/01/23 S72.142A - Displaced intertrochanteric fracture of left femur, initial encounter for closed fracture Patient Instructions: Scribed for Manny Maldonado PA-C, by Nam Cruz director medical affairs, on 08/01/2023 at 1:00 PM EST.? I, Manny Maldonado PA-C, have personally reviewed and agree with the information entered by the scribe. Coding Level of Care Code Global (60249) Diagnoses Closed displaced intertrochanteric fracture of right femur with routine healing, subsequent encounter S72.141D Encounter type: subsequent encounter Fracture alignment: displaced Fracture healing: with routine healing
[2023-08-01 13:23] VITALS: BMI 19.2
== END 2023-08-01 13:50 | disposition home or self-care (01) ==
PROVIDERS: Visit Provider Physician Assistant
DX: S72.141D Displaced intertrochanteric fracture of right femur, subsequent encounter for closed fracture with routine healing (principal)
CPT/HCPCS: 99024

== ENCOUNTER 2023-08-29 12:42 | Outpatient (REF) | payer MEDICAID, SELFPAY ==
--- NOTE | ~2023-08-29 | XR_ITS ---
EXAMINATION: XR FEMUR, RIGHT CLINICAL INFORMATION: Displaced intertrochanteric fracture left femur. COMPARISON: 08/01/2023. TECHNIQUE: 4 views of the right femur were obtained. FINDINGS: Redemonstration of intact right femoral intramedullary chema and compression screw transfixing previously noted proximal femoral intertrochanteric fracture. Similar alignment of fracture fragments with redemonstration of displaced fragment of the lesser trochanter. There is the suggestion of faint bridging callus formation. XR/XR femur RT 2V IMPRESSION: Redemonstration of intact right femoral intramedullary chema and compression screw transfixing previously noted proximal femoral intertrochanteric fracture. Similar alignment of fracture fragments with redemonstration of displaced fragment of the lesser trochanter. There is the suggestion of faint bridging callus formation.
== END 2023-08-29 12:43 | disposition home or self-care (01) ==
LOC: HO.HOSX 12:42
PROVIDERS: Visit Provider Physician Assistant
DX: S72.141D Displaced intertrochanteric fracture of right femur, subsequent encounter for closed fracture with routine healing (principal)
CPT/HCPCS: 73552; 99212

== ENCOUNTER 2023-08-29 13:23 | Outpatient (AMB) | payer MEDICAID, SELFPAY ==
--- NOTE | 2023-08-29 13:42 | A.OFFVIS_ITS ---
Vital Signs 08/29/23 13:54 Height 5 ft 9 in Weight 130 lb BMI 19.2 Intake Visit Reasons: PO 4wk f/u Rt hip IMN Intake Note: Tru a 37 year old male who presents today for a post operative visit s/p right hip IMN on 07/19/23 with NE. Patient reports he is doing well, states occasional discomfort and soreness with attending PT. Allergies No Known Allergies Allergy (Verified 08/29/23 13:56) HPI HPI PO 4wk f/u Rt hip IMN: Details: 37-year-old male who returns to the office today for post-op right hip IMN, 07/19/[address] Chavira. He states he has occasional discomfort and soreness in his hip with attending physical therapy however he is doing well overall. He has no other concerns today. [facility] Medical History No pertinent past medical history Smoker Surgical History [place] teeth extracted Social History Household Members: Significant Other Housing: Apartment Do you presently have visiting nurse or other home services: No Patient Tobacco Use Status: Current everyday Tobacco user Tobacco use type: Cigarette Cigarettes Per Day: 4 Years Smoked: 22 Substance Use Type: Marijuana service: No Current occupational status: employed Current occupation: freelancer/computer programer Review of Systems Const All systems reviewed & are unremarkable except as noted in HPI and below Physical Exam Vital Signs: BMI result Body Mass Index 19.2 Extrem Other: Right hip: Incision clean, dry and intact. No redness or drainage. He is able to perform hip flexion with mild discomfort. Calf supple, nontender. NVI. Results Reviewed Results Reviewed: Xrays were obtained in the office today and personally reviewed by me of the right hip show intact IMN with stable fracture pattern Assessment & Plan Assessment & Plan (1) Closed intertrochanteric fracture of right hip: Code(s): S72.141A - Displaced intertrochanteric fracture of right femur, initial encounter for closed fracture Category: Medical Qualifiers: Encounter type: subsequent encounter Fracture alignment: displaced Fracture healing: with routine healing Qualified Code(s): S72.141D - Displaced intertrochanteric fracture of right femur, subsequent encounter for closed fracture with routine healing Plan He will continue with physical therapy to work on glute strengthening and ??gait training. I would recommend no excessive hip flexion or ER that will cause pain. He can increase activities as tolerated being cautious not to push himself till severe pain. I would like to see him back in 6 weeks with new x-rays, sooner if needed. Orders: Orders XR femur RT 2V Today S72.142A - Displaced intertrochanteric fracture of left femur, initial encounter for closed fracture Patient Instructions: Scribed for Manny Maldonado PA-C, by Nam Cruz biomedical specialist, on 08/29/2023 at 1:30 PM EST.? I, Manny Maldonado PA-C, have personally reviewed and agree with the information entered by the scribe. Coding Level of Care Code Global (48261) Diagnoses Closed displaced intertrochanteric fracture of right femur with routine healing, subsequent encounter S72.141D Encounter type: subsequent encounter Fracture alignment: displaced Fracture healing: with routine healing
[2023-08-29 13:54] VITALS: BMI 19.2
== END 2023-08-29 14:05 | disposition home or self-care (01) ==
PROVIDERS: Visit Provider Physician Assistant
DX: S72.141D Displaced intertrochanteric fracture of right femur, subsequent encounter for closed fracture with routine healing (principal)
CPT/HCPCS: 99024

== ENCOUNTER 2023-10-14 13:32 | Outpatient (AMB) | payer MEDICAID, SELFPAY ==
--- NOTE | 2023-10-14 14:02 | A.OFFVIS_ITS ---
Vital Signs 10/14/23 14:04 Height 5 ft 9 in Weight 130 lb BMI 19.2 Intake Visit Reasons: OV-6wk f/u Rt hip IMN Intake Note: Tru a 37 year old male who presents today for a post operative visit s/p right hip IMN on 07/19/23 with NE. Patient reports he is doing well, denies any pain however he has intermittent soreness. Finds relief with ibuprofen. Allergies No Known Allergies Allergy (Verified 10/14/23 14:04) HPI HPI OV-6wk f/u Rt hip IMN: Details: 37-year-old male who returns to the office today for post-op right hip IMN, 07/19/[address] Chavira. He states he has no pain however he does have intermittent soreness in his hip. He finds relief with ibuprofen. He is doing well overall and has no other concerns today. [facility] Medical History No pertinent past medical history Smoker Surgical History [place] teeth extracted Social History Household Members: Significant Other Housing: Apartment Do you presently have visiting nurse or other home services: No Patient Tobacco Use Status: Current everyday Tobacco user Tobacco use type: Cigarette Cigarettes Per Day: 4 Years Smoked: 22 Substance Use Type: Marijuana service: No Current occupational status: employed Current occupation: freelancer/computer programer Review of Systems Const All systems reviewed & are unremarkable except as noted in HPI and below Physical Exam Vital Signs: BMI result Body Mass Index 19.2 Extrem Other: Right hip: Incision clean, dry and intact. No redness or drainage. He is able to perform hip flexion with no discomfort. Calf supple, nontender. NVI. Results Reviewed Results Reviewed: Xrays were obtained in the office today and personally reviewed by me of the right hip show intact IMN with stable fracture pattern Assessment & Plan Assessment & Plan (1) Closed intertrochanteric fracture of right hip: Code(s): S72.141A - Displaced intertrochanteric fracture of right femur, initial encounter for closed fracture Category: Medical Qualifiers: Encounter type: subsequent encounter Fracture alignment: displaced Fracture healing: with routine healing Qualified Code(s): S72.141D - Displaced intertrochanteric fracture of right femur, subsequent encounter for closed fracture with routine healing Plan He will continue with physical therapy and increase activities as tolerated. If symptoms persist or worsen, patient will contact the office, otherwise follow-up as needed. Orders: Orders XR femur RT 2V Today S72.142A - Displaced intertrochanteric fracture of left femur, initial encounter for closed fracture Patient Instructions: Scribed for Manny Maldonado PA-C, by Nam Cruz medical support assistant, on 10/14/2023 at 1:30 PM EST.? I, Manny Maldonado PA-C, have personally reviewed and agree with the information entered by the scribe. Coding Level of Care Code Global (11851) Diagnoses Closed displaced intertrochanteric fracture of right femur with routine healing, subsequent encounter S72.141D Encounter type: subsequent encounter Fracture alignment: displaced Fracture healing: with routine healing
[2023-10-14 14:04] VITALS: BMI 19.2
== END 2023-10-14 14:14 | disposition home or self-care (01) ==
PROVIDERS: Visit Provider Physician Assistant
DX: S72.141D Displaced intertrochanteric fracture of right femur, subsequent encounter for closed fracture with routine healing (principal)
CPT/HCPCS: 99024

== ENCOUNTER 2023-10-14 13:39 | Outpatient (REF) | payer MEDICAID, SELFPAY ==
--- NOTE | ~2023-10-14 | XR_ITS ---
EXAMINATION: XR FEMUR, RIGHT CLINICAL INFORMATION: Intertrochanteric fracture. COMPARISON: Most recent right femur radiographs dated 08/29/2023. TECHNIQUE: AP and lateral views of the right femur were obtained. FINDINGS: Redemonstration of a proximal femoral intramedullary chema and dynamic hip screw with a distal stabilization screw. No hardware fracture or perihardware lucency to suggest loosening or infection. Comminuted intertrochanteric fracture in unchanged anatomic alignment with persistent medial displacement of the lesser trochanter fracture fragment. Minimal new bone/callus formation when compared to the prior examination. No new fracture or dislocation. No joint space narrowing or marginal osteophytes. No evidence of femoral head avascular necrosis. XR/XR femur RT 2V IMPRESSION: 1. Right femoral ORIF without evidence of hardware complication. 2. Comminuted intertrochanteric fracture in unchanged anatomic alignment with minimal new bone/callus formation when compared to the prior examination. Electronically signed by: Aniket Jacinto MD 10/18/2023 11:09 AM EDT
== END 2023-10-14 13:40 | disposition home or self-care (01) ==
LOC: HO.HOSX 13:39
PROVIDERS: Visit Provider Physician Assistant
DX: S72.142A Displaced intertrochanteric fracture of left femur, initial encounter for closed fracture (principal); S72.141D Displaced intertrochanteric fracture of right femur, subsequent encounter for closed fracture with routine healing
CPT/HCPCS: 73552; 99212

== ENCOUNTER 2023-12-26 17:00 | Outpatient (RCR) | payer MEDICAID, SELFPAY ==
--- NOTE | 2023-08-09 12:44 | MHC.PT.EP ---
[facility] [place] Office [place] [facility] [place] Office [address] Meenu Mckoy [address] [phone] F: [phone] F: [phone] F: [phone] F: [phone] Physical Therapy Plan of Care Date of Evaluation: 08/09/23 Date of Surgery: 07/19/23 Diagnosis: RT hip IMN NE Assessment: Pt referred to PT by R hip IMN surgeon Jackson Chavira MD. Pt is a pleasant 37 y/o male attending PT following surgery on 07/18 after breaking R hip while rollerblading. Pt presents ambulating w/ 2WW demonstrating gait abnormalities such as decreased WB, decreased knee extension, and decreased hip extension on R LE and well as decreased step and stride length. Though a contraction is visible, pt is unable to hold R LE in test position for muscle strength testing w/ weakness especially present in hip flexion, knee extension, and knee flexion. Pt also displays reduced ROM d/t pain and tightness in R LE. Pt was shown gastroc stretch and heel slides to address restrictions in ROM. Pt was also shown quad and glute sets to improve strength of hip musculature isometrically. Pt was also educated regarding negotiating stairs since he mentioned he had never attempted before (instructed to go up w/ good leg, down w/ bad leg, also cautioned to use railing and person for assistance). To focus on WB through R LE pt was instructed to perform alternating hip flexion and abduction w/ walker support, TKE was also given to address lack of knee extension. Future sessions will continue to improve WB through R LE and R LE strength as pt's tolerance allows. Frequency and Duration: The patient will be seen 2x week 6 weeks Short Term Goals: In 2 weeks: -Pt will improve R hip flexion to 90 degrees to allow for improved ability to don/doff clothing and complete other personal care tasks -Pt will improve R knee extension to 90 degrees to allow to improved stair and curb negotiation -Pt will report pain no higher than 3/10 at worst to allow for improved ability to ambulate longer distances. Prison Goals: In 6 weeks: -Pt will improve R hip flexion to 120 degrees to allow better ability to complete household tasks (cooking, cleaning, etc.) -Pt will have strength of R LE of at least 4/5 to allow for enhanced ability to ambulate w/o 2 WW -Pt will improve LEFS score by 9 points to demonstrate improved ability to participate in recreational activities Treatment Plan: Modalities to reduce pain, spasms and effusion. Manual therapy to restore motion and function. Therapeutic exercise to improve strength and flexibility. Neuromuscular re-education for posture and balance. Therapeutic activities to return to functional activities of daily living. Electronically signed by: Erasmo Montemayor, PT, DPT Please sign and return to therapist. Thank you for your referral.
--- NOTE | 2023-12-26 18:08 | MHC.PT.DC ---
[facility] [place] Office [place] Office [place] Office [address] [phone] F: [phone] F: [phone] F: [phone] F: [phone] Physical Therapy Discharge Report Diagnosis: RT hip IMN NE jxdt Date of Surgery: 07/19/23 Date of Evaluation: 08/09/23 Date of Discharge: 12/26/23 Treatments to Date: Cancellations to Date: No Shows to Date: Discharge Status: Achieved Goals Independent with HEP Discharge Summary: Tru presents with significant improvement in R hip strength, AROM and improved gait pattern. With slight weakness remaining in hip flexors and glute medius. He has a comprehensive HEP going forward, including light plyometrics. He has no pain with any activities today, able to correct any compensations with squat and lunges. He agree to discharge today. Electronically signed by: Erasmo Montemayor, PT, DPT Please sign and return to therapist. Thank you for your referral.
== END 2023-12-26 18:09 | disposition home or self-care (01) ==
LOC: HO.PT 17:00
PROVIDERS: Visit Provider Physician Assistant
DX: S72.141D Displaced intertrochanteric fracture of right femur, subsequent encounter for closed fracture with routine healing (principal)
CPT/HCPCS: 97110; 97112; 97116; 97140; 97162; 97530; 97535

== ENCOUNTER 2024-05-06 08:17 | Emergency (ER) | payer MEDICAID, SELFPAY ==
[2024-05-06 08:37] VITALS: BP 141/87; PULSE 58; RESP 16; TEMP 36.6; O2SAT 100; BMI 23.3
--- NOTE | 2024-05-06 09:29 | ED_ITS ---
HPI - Wound/Laceration General Chief Complaint: Wound/Laceration Stated Complaint: R finger lac Time Seen by Provider: 05/06/24 09:28 Source: patient and RN notes reviewed Mode of arrival: ambulatory Limitations: no limitations History of Present Illness ED Provider: Sherley Garcia PA-C HPI narrative: This is a 38-year-old male who presents emergency department with complaints of left 2nd digit laceration which occurred early this morning. He was cutting let us and accidentally sliced his left 2nd digit. This was an accidental injury. Tetanus is up-to-date, last updated at 2 weeks ago. He is right-hand dominant. Denies any numbness, tingling or weakness. No other complaints or concerns at this time. Onset (ago): day(s) Place: home Patient tetanus UTD: Yes Context: accidental Associated symptoms: pain Related Data Home Medications ?Medication ?Instructions ?Recorded ?Confirmed multivitamin 1 tab PO DAILY 07/18/23 07/18/23 Previous Rx's ?Medication ?Instructions ?Recorded acetaminophen 325 mg tablet 650 mg (2 x 325 mg) PO Q6H PRN 07/21/23 Pain, Mild (Pain Scale 1-3) 30 days #240 tabs Allergies Allergy/AdvReac Type Severity Reaction Status Date / Time No Known Allergies Allergy Verified 05/06/24 08:38 Review of Systems Review of Systems: Yes all other systems are reviewed and are negative [facility] Past Medical History Attestation statement: The following information was validated with the patient. Medical History No pertinent past medical history Smoker Surgical History [place] teeth extracted Social History Social History Household Members: Significant Other Housing: Apartment Do you presently have visiting nurse or other home services: No Patient Tobacco Use Status: Current everyday Tobacco user Tobacco use type: Cigarette Cigarettes Per Day: 4 Years Smoked: 22 Substance Use Type: Marijuana Advance Directives: No Advance Directives Information Provided: Yes service: No Current occupational status: employed Current occupation: freelancer/computer programer Physical Exam Vital Signs: Vital Signs: Last Vital Signs Temp 97.9 F 05/06/24 08:37 Pulse 58 05/06/24 08:37 Resp 16 05/06/24 08:37 BP 141/87 H 05/06/24 08:37 Pulse Ox 100 05/06/24 08:37 O2 Del Method Room Air 05/06/24 08:37 BMI result Body Mass Index 23.3 Const: Other: General: Awake, alert, and oriented X3. No acute distress. HEENT: Normal inspection CVS: Normal heart rate and rhythm. Pulses normal. Respiratory: No respiratory distress Skin: 2nd digit, palmar aspect, there is a v-shaped partial-thickness laceration with active bleeding noted. Approximately 4 cm in length. Sensation intact. Extremities: Normal to inspection Neuro: Oriented X 3. No motor deficit. No sensory deficit. Medications Administered Discontinued Medications Generic Name Dose Route Start Last Admin Trade Name Freq PRN Reason Stop Dose Admin Lidocaine HCl 5 ml 05/06/24 09:29 05/06/24 09:36 Lidocaine Hcl 1 % Mpf 5 Ml Vial SUBCUT 05/06/24 09:30 5 ml ONCE ONE Administration Medical Decision Making Medical Decision Making MDM Narrative: This is a 38-year-old male who presents emergency department with concerns for left 2nd digit laceration which occurred at home today. On arrival, patient mildly hypertensive at 141/87, all other vital signs within normal limits. He is speaking in full sentences under no acute distress. Wound requiring suture repair. Up-to-date on his tetanus. Wound is superficial therefore bony involvement is unlikely. He has full ROM of the digit without difficulty. Wound was repaired with 4 5 0 sutures. Patient tolerated procedure well without complications or concerns. See procedure note for detail. Given wound care instructions. Given strict return precautions. He understands and agrees with plan. Patient stable for discharge Differential Diagnosis Differential Diagnoses: The differential diagnosis associated with the presentation includes Laceration, contusion, puncture wound, abrasion Procedures Laceration Laceration 1: Site: hand Side (If applicable): left Size (cm): 2 Description: flap Depth: simple, single layer Local Anesthetic: lidocaine 1% Amount of anesthesia used (mL): 3.5 Pre-repair: wound explored, irrigated extensively and deep structures intact Skin layer closed with: nylon Size (cm): 5-0 Number of sutures: 4 Technique: simple, interrupted Discharge Plan Discharge Clinical Impression: Laceration Patient Disposition: Home, Self-Care Instructions: Laceration (ED), Care For Your Stitches (ED) Additional Instructions: You were seen in the emergency department after accidentally lacerating your finger. You have [address] Please keep these on for 10-14 days. You may r eturn here or follow-up at an urgent care or primary care facility. Keep the dressing that we applied on for 24 hours, you can remove this, and gently rinse with warm soapy water. Keep wound clean and dry. Watch for any signs of infection including but not limited to increased redness, swelling, fevers, chills. If any of these occur, please seek emergent care. Prescriptions: No Action multivitamin Tablet 1 tab PO DAILY acetaminophen 325 mg Tablet 650 mg PO Q6H PRN (Reason: Pain, Mild (Pain Scale 1-3)) 30 Days Qty: 240 0RF Print Language: Azerbaijani
[2024-05-06] MEDS: Lidocaine HCl 1 % MPF 5 ML VIAL SUBCUT (09:36)
[2024-05-06] MEDS: Bacitracin Oint 0.9 GM PACKET 1 APPL TOPICAL (11:07)
[2024-05-06 11:08] VITALS: BP 141/87; PULSE 58; RESP 16; TEMP 36.6; O2SAT 100
== END 2024-05-06 11:21 | disposition home or self-care (01) ==
PROVIDERS: Emergency Provider Emergency Medicine
DX: S61.210A Laceration without foreign body of right index finger without damage to nail, initial encounter (principal); M79.641 Pain in right hand; W26.9XXA Contact with unspecified sharp object(s), initial encounter; Y93.9 Activity, unspecified; Y92.9 Unspecified place or not applicable; Y99.8 Other external cause status
CPT/HCPCS: 12041; 99283; 99284; J2003

== ENCOUNTER 2024-05-27 17:16 | Emergency (ER) | payer MEDICAID, SELFPAY ==
[2024-05-27 17:23] VITALS: BP 99/68; PULSE 62; RESP 18; TEMP 36.8; O2SAT 97; BMI 18.5
--- NOTE | 2024-05-27 17:27 | ED_ITS ---
HPI - General Adult General Chief complaint: General Medical Stated complaint: stitches removal Time Seen by Provider: 05/27/24 17:23 Source: patient, RN notes reviewed and old records reviewed Mode of arrival: ambulatory Limitations: no limitations History of Present Illness ED Provider: Jaylin HARRELL narrative: 38-year-old male presents for evaluation of suture removal. Patient had sutures placed to his left index finger on 05/06/2024 at this facility. He accidentally cut his finger with a knife while making a salad He had 4 sutures placed and he was here to have them removed He denies any issues with the finger or sutures Related Data Home Medications ?Medication ?Instructions ?Recorded ?Confirmed multivitamin 1 tab PO DAILY 07/18/23 07/18/23 Previous Rx's ?Medication ?Instructions ?Recorded acetaminophen 325 mg tablet 650 mg (2 x 325 mg) PO Q6H PRN 07/21/23 Pain, Mild (Pain Scale 1-3) 30 days #240 tabs Allergies Allergy/AdvReac Type Severity Reaction Status Date / Time No Known Allergies Allergy Verified 05/27/24 17:24 [facility] Past Medical History Medical History No pertinent past medical history Smoker Surgical History [place] teeth extracted Social History Social History Household Members: Significant Other Housing: Apartment Do you presently have visiting nurse or other home services: No Patient Tobacco Use Status: Current everyday Tobacco user Tobacco use type: Cigarette Cigarettes Per Day: 4 Years Smoked: 22 Substance Use Type: Marijuana Advance Directives: No Advance Directives Information Provided: No service: No Current occupational status: employed Current occupation: freelancer/computer programer Physical Exam ED Vital Signs: Vital Signs - 24 hr 05/27/24 17:23 Temperature 98.2 F Pulse Rate 62 Respiratory Rate 18 Blood Pressure 99/68 Pulse Oximetry 97 Oxygen Delivery Method Room Air BMI result Body Mass Index 18.5 Const General: healthy appearing, comfortable, no acute distress, alert and awake Nutritional Appearance: well nourished Orientation/consciousness: patient oriented x3 HENMT Head: Yes normocephalic and Yes atraumatic Resp Effort & Inspection: normal respiratory effort, able to speak in complete sentences and not labored Skin Other: Wound to the radial side of the left index finger is well healed with 4 sutures intact. No surrounding erythema General skin exam: elasticity normal Neuro General: patient oriented x3 Cranial nerves: Yes Bilaterally intact EOM present Cognition (Neuro): normal cognition Medical Decision Making Medical Decision Making MDM Narrative: Patient's wound appears well healed, 4 sutures were easily removed with scissors. There was no wound dehiscence, no evidence of infection, he was discharged Differential Diagnosis Differential Diagnoses: The differential diagnosis associated with the presentation includes Suture removal Wound check Laceration Skin tear Discharge Plan Discharge Clinical Impression: Encounter for removal of sutures Patient Disposition: Home, Self-Care Instructions: Stitches Removal (ED) Additional Instructions: You had 4 sutures removed today. Keep the area clean and dry Prescriptions: No Action multivitamin Tablet 1 tab PO DAILY acetaminophen 325 mg Tablet 650 mg PO Q6H PRN (Reason: Pain, Mild (Pain Scale 1-3)) 30 Days Qty: 240 0RF Print Language: Yi
[2024-05-27 18:01] VITALS: BP 99/68; PULSE 62; RESP 18; TEMP 36.8; O2SAT 97
== END 2024-05-27 18:02 | disposition home or self-care (01) ==
PROVIDERS: Emergency Provider Emergency Medicine
DX: Z48.02 Encounter for removal of sutures (principal)
CPT/HCPCS: 99282